=== PATIENT | female | born 1995 | race Hispanic/Latino ===

== ENCOUNTER 2016-07-23 11:38 | Emergency (ER) | payer SELFPAY ==
[2016-07-23 12:00] VITALS: BP 144/101
--- NOTE | 2016-07-23 13:45 | XRay Report ---
LEFT ANKLE RADIOGRAPHS INDICATION: Pain, swelling, injury. COMPARISON: None similar. FINDINGS: AP, lateral and oblique left ankle radiographs demonstrate intact mortise, medial and lateral malleoli and talar dome contour. However, subtle cortical offset on the lateral view suspicious for a nondisplaced posterior malleolus fracture. Clear medial joint space of 4 mm. Moderate diffuse soft tissue swelling noted. CONCLUSION: Left ankle posterior malleolus subtle acute nondisplaced fracture not entirely excluded with extensive diffuse soft tissue swelling, as described. Please correlate. Thank you for the opportunity to participate in this patient's care.
--- NOTE | 2016-07-23 16:47 | Emergency Department Report ---
Entered by ROCKY ZELAYA, acting as scribe for KITTY VALADEZ PA. ED Lower Extremity HPI - General Chief Complaint: Extremity Injury, Lower Stated Complaint: FALL/LT ANKLE PAIN Time Seen by Provider: 07/23/16 13:32 Source: patient Mode of arrival: Wheelchair Limitations: No Limitations - History of Present Illness Initial Comments: 20 y/o female with no significant PMHx, presents to the ED c/o left ankle pain secondary to fall that occurred 3 days ago. The patient states that she was skating and fell, resulting in the injury. Denies LOC at the time of the fall. Associated symptom of left ankle swelling, but she denies chest pain, SOB, abdominal pain, numbness, and weakness. MD Complaint: ankle injury (left ankle pain and swelling) -: days(s) (3 days ago) Injury: Ankle: Left (left ankle pain and swelling) Place: street/outdoors (at a skating rink) Severity: severe Severity scale (0 -10): 10 Improves With: nothing Worsens With: movement Context: other (patient was skating and fell, resulting in the injury) Associated Symptoms: denies: other (SOB, chest pain, abdominal pain, numbness, weakness) - Related Data Previous Rx's Medication Instructions Recorded Last Taken Type EPINEPHrine [Epipen 2-Eleno] 0.3 mg IM ONCE PRN #1 ml 03/09/16 Unknown Rx Famotidine [Pepcid] 20 mg PO BID #6 tablet 03/09/16 Unknown Rx Prednisone [predniSONE 10 mg 10 mg PO .TAPER #1 tab.ds.pk 03/09/16 Unknown Rx (6-Day Pack, 21 Tabs)] diphenhydrAMINE [Benadryl CAP] 50 mg PO Q6H #12 capsule 03/09/16 Unknown Rx Etodolac 300 mg PO BID #20 capsule 07/23/16 Unknown Rx Allergies Allergy/AdvReac Type Severity Reaction Status Date / Time codeine Allergy Unknown Verified 03/09/16 18:58 Penicillins Allergy Unknown Verified 03/09/16 18:58 ED Review of Systems ROS: Constitutional: denies: chills, fever Eyes: denies: eye pain, eye discharge, vision change ENT: throat pain. denies: ear pain Respiratory: denies: cough, shortness of breath, wheezing Cardiovascular: denies: chest pain, palpitations Endocrine: no symptoms reported Gastrointestinal: denies: abdominal pain, nausea, diarrhea Genitourinary: denies: urgency, dysuria, discharge Musculoskeletal: Positive for left ankle pain, tenderness, and swelling, denies : back pain Skin: denies: rash, lesions Neurological: denies: headache, weakness, paresthesias Psychiatric: denies: anxiety, depression Hematological/Lymphatic: denies: easy bleeding, easy bruising Constitutional: denies: chills, fever Eyes: denies: eye pain, eye discharge, vision change ENT: denies: ear pain, throat pain Respiratory: denies: cough, shortness of breath, wheezing Cardiovascular: denies: chest pain, palpitations Endocrine: no symptoms reported Gastrointestinal: denies: abdominal pain, nausea, diarrhea Genitourinary: denies: urgency, dysuria, discharge Musculoskeletal: joint swelling, arthralgia. denies: back pain Skin: denies: rash, lesions Neurological: denies: headache, weakness, paresthesias Psychiatric: denies: anxiety, depression Hematological/Lymphatic: denies: easy bleeding, easy bruising ED Past Medical Hx - Past Medical History Previous Medical History?: No - Surgical History Past Surgical History?: No - Social History Smoking Status: Current Some Day Smoker Substance Use Type: None - Medications Home Medications: Home Medications Medication Instructions Recorded Confirmed Last Taken Type EPINEPHrine [Epipen 2-Eleno] 0.3 mg IM ONCE PRN #1 ml 03/09/16 Unknown Rx Famotidine [Pepcid] 20 mg PO BID #6 tablet 03/09/16 Unknown Rx Prednisone [predniSONE 10 mg 10 mg PO .TAPER #1 tab.ds.pk 03/09/16 Unknown Rx (6-Day Pack, 21 Tabs)] diphenhydrAMINE [Benadryl CAP] 50 mg PO Q6H #12 capsule 03/09/16 Unknown Rx Etodolac 300 mg PO BID #20 capsule 07/23/16 Unknown Rx ED Physical Exam - General Limitations: No Limitations - Eye Eye exam: Present: normal appearance - ENT ENT exam: Present: mucous membranes moist - Neck Neck exam: Present: normal inspection - Respiratory Respiratory exam: Present: normal lung sounds bilaterally. Absent: respiratory distress - GI/Abdominal GI/Abdominal exam: Present: soft, normal bowel sounds - Other Other exam information: - General: No Limitations, alert, in no apparent distress - Head Exam: atraumatic, normocephalic - Eye exam: Normal appearance - ENT exam: mucous membranes moist -Neck exam: Normal inspection, lymphadenopathy - Respiratory exam: normal lung sounds bilaterally. No respiratory distress - Cardiovascular Exam: Regular rate, normal rhythm. No systolic murmur, diastolic murmur, rubs, or gallop - GI/Abdominal Exam: Abdomen is soft, normal bowel sounds. - Extremities Exam: normal except for the left ankle. There is noted swelling and ecchymosis to the left ankle, but no obvious deformity. Affected extremity is neurovascularly intact, 2 point discern is intact - Back Exam: normal inspection - Neurological Exam: Present: alert, oriented X3 - Skin exam: warm, dry, intact, normal color except affected. Left ankle is swollen with ecchymosis. No rash. -Psychiatric exam: Present: normal affect, normal mood ED Course Vital Signs 07/23/16 11:54 Temperature 97.9 F Pulse Rate 90 Respiratory 20 Rate Blood Pressure 144/101 O2 Sat by Pulse 100 Oximetry - Orthopedic Splinting/Casting Injury #1 Lower Extremity Injury Location: ankle Lower Extremity Immobilizer: posterior splint Other Orthopedic Equipment: crutches Additional Comments: Patient is neurovascular intact post splinting procedure. Patient tolerated well. Pain reduced. Patient given instructions on walking on crutches. ED Lower Extremity MDM - Radiology Data Radiology results: report reviewed ED Disposition Clinical Impression: Avulsion fracture of left ankle Disposition: DISCHARGED TO HOME OR SELFCARE Is pt being admited?: No Condition: Stable Instructions: Ankle Fracture (ED) Prescriptions: Etodolac 300 mg PO BID #20 capsule Referrals: PRIMARY CAREMD [Primary Care Provider] - 3-5 Days MASSIEL OTTO MD [Staff Physician] - 3-5 Days This documentation as recorded by the NATHALIE [facility] GRACE,accurately reflects the service I personally performed and the decisions made by ,KITTY VALADEZ PA.
== END 2016-07-23 15:34 | disposition home or self-care (01) ==
LOC: ED 11:38
DX: S82.892A Other fracture of left lower leg, initial encounter for closed fracture (principal); F17.200 Nicotine dependence, unspecified, uncomplicated; Z88.0 Allergy status to penicillin; Z88.6 Allergy status to analgesic agent; W19.XXXA Unspecified fall, initial encounter; Y93.51 Activity, roller skating (inline) and skateboarding; Y99.9 Unspecified external cause status; Y92.331 Roller skating rink as the place of occurrence of the external cause
CPT/HCPCS: 81025